=== PATIENT | female | born 1940 | race Caucasian/White ===

== ENCOUNTER 2017-01-02 17:48 | Inpatient (IN) | payer MEDICAID ==
[~2017-01-02] VITALS: Ht 157.5 cm; Wt 44.5 kg
[~2017-01-02 17:48] MED LIST: AMO500 PO; AMOXIL PO; APAP/HYDROCODON1 T13 PO; BACO TOP; BIA500 PO; COLACE100 MG PO; DOCUSATE100 MG PO; ELA10 PO; FERROUS SULFAT325 M2 PO; FLA500 PO; FOL1 PO; GABAPENTIN100 MG PO; HIBICLENS118 ML TOP; HYDROCODONE BIT1 TA5 PO; LEV250 PO; LISINOPRIL2.5 MG PO; MAG PO; NAP375 PO; NORCO1 TA2; NPHOS PO; PANTOPRAZOLE SO40 M1 PO; PRI20 PO; PROBIOTIC FORMU1 CA1 PO; PROT40I IV; REG10I IV; TYL325 PO; VENLAFAXINE37.5 M1 PO; VICODIN1 TA1 PO; [UNRECOGNIZED DRUG - CODE] PO
[2017-01-02 19:37] LABS: BASOPHIL % 0.8 % (0-2); PLATELET COUNT 373 x10^3mcL (130-400)
[2017-01-02 19:48] LABS: RED CELL DISTRIBUTION WIDTH 23.8 % (11.5-14.5)
[2017-01-02 19:49] LABS: ALBUMIN 4.3 g/dL (3.4-5.0); ALKALINE PHOSPHATASE 105 U/L (46-116); ALT/SGPT 16 U/L (14-59); AST/SGOT 20 U/L (15-37); BILIRUBIN TOTAL 0.2 mg/dL (0.20-1.00); CALCIUM 11.9 mg/dL (8.5-10.1); CARBON DIOXIDE 30.1 mmol/L (21-32); CHLORIDE SERUM 103 mmol/L (98-107); GLUCOSE SERUM 148 mg/dL (74-106); LIPASE 1058 IU/L (73-393); SODIUM SERUM 144 mmol/L (136-145)
[2017-01-02 19:50] LABS: UA SPECIFIC GRAVITY 1.015 (1.005-1.035); microscopic required? YES; urine erythrocyte TRACE (NEGATIVE)
[2017-01-02 19:54] LABS: POTASSIUM SERUM 2.8 mmol/L (3.5-5.1); TOTAL PROTEIN, SERUM 8.8 g/dL (6.4-8.2)
[2017-01-02] MEDS ORDERED: CARAFATE1 GM PO (20:07)
[2017-01-02 21:28] VITALS: BP 208/110
[2017-01-02 21:50] LABS: PHOSPHOROUS 1.5 mg/dL (2.5-4.9)
[2017-01-02 21:56] LABS: T3 TOTAL 1.38 ng/mL
[2017-01-02 22:00] LABS: FREE T4 1.39 ng/dL (0.76-1.46); FREE THYROXINE INDEX 3.5 ug/dL (1.4-4.5); T4(THYROXINE) 11.7 ug/dL (4.7-13.3)
[2017-01-02 22:40] LABS: CHOLESTEROL/HDL RATIO 2.3
[2017-01-02 23:22] VITALS: BP 190/105
[2017-01-03 00:32] VITALS: BP 172/86
[2017-01-03 05:48] VITALS: BP 155/93
[2017-01-03 06:13] LABS: BASOPHIL % 0.2 % (0-2); PLATELET COUNT 315 x10^3mcL (130-400); RED BLOOD CELLS 3.76 M/mm3 (4.10-5.10)
[2017-01-03 06:54] LABS: CALCIUM 10.3 mg/dL (8.5-10.1); CARBON DIOXIDE 21.3 mmol/L (21-32); CHLORIDE SERUM 107 mmol/L (98-107); CREATININE SERUM 0.8 mg/dL (0.6-1.0); GLUCOSE SERUM 137 mg/dL (74-106); MAGNESIUM 2.6 mg/dL (1.8-2.4); PHOSPHOROUS 2.1 mg/dL (2.5-4.9); POTASSIUM SERUM 3.8 mmol/L (3.5-5.1); SODIUM SERUM 141 mmol/L (136-145)
[2017-01-03 07:55] LABS: IRON 42 ug/dL (50-170); TOTAL IRON BINDING CAPACITY 442 ug/dL (250-450)
[2017-01-03 08:41] VITALS: BP 127/73
[2017-01-03 14:15] VITALS: BP 145/69
[2017-01-03 17:06] VITALS: BP 142/72
[2017-01-03 21:38] VITALS: BP 156/71
[2017-01-04] VITALS (7 sets, daily range): BP systolic 139–170; BP diastolic 66–88
[2017-01-04 06:36] LABS: BASOPHIL % 0.7 % (0-2); PLATELET COUNT 264 x10^3mcL (130-400)
[2017-01-04 06:53] LABS: RED CELL DISTRIBUTION WIDTH 23.2 % (11.5-14.5)
[2017-01-04 07:10] LABS: CARBON DIOXIDE 18.8 mmol/L (21-32); CHLORIDE SERUM 109 mmol/L (98-107); CREATININE SERUM 0.7 mg/dL (0.6-1.0); GLUCOSE SERUM 93 mg/dL (74-106); POTASSIUM SERUM 3.4 mmol/L (3.5-5.1); SODIUM SERUM 139 mmol/L (136-145)
[2017-01-04 14:31] LABS: TRANSFERRIN 359 mg/dL (200-370)
[2017-01-05 06:09] LABS: BASOPHIL % 1.3 % (0-2); PLATELET COUNT 246 x10^3mcL (130-400)
[2017-01-05 06:22] VITALS: BP 145/72
[2017-01-05 06:44] LABS: CALCIUM 9.2 mg/dL (8.5-10.1); CARBON DIOXIDE 21.2 mmol/L (21-32); CHLORIDE SERUM 109 mmol/L (98-107); CREATININE SERUM 0.7 mg/dL (0.6-1.0); GLUCOSE SERUM 87 mg/dL (74-106); MAGNESIUM 1.9 mg/dL (1.8-2.4); PHOSPHOROUS 1.6 mg/dL (2.5-4.9); POTASSIUM SERUM 4.2 mmol/L (3.5-5.1); SODIUM SERUM 138 mmol/L (136-145)
[2017-01-05 07:13] LABS: RED CELL DISTRIBUTION WIDTH 22.9 % (11.5-14.5)
[2017-01-05 17:52] VITALS: BP 170/97
[2017-01-05 22:40] VITALS: BP 184/90
[2017-01-05 23:20] VITALS: BP 176/86
[2017-01-06 00:16] VITALS: BP 162/82
[2017-01-06 01:41] VITALS: BP 166/85
[2017-01-06 06:09] LABS: BASOPHIL % 0.3 % (0-2); PLATELET COUNT 333 x10^3mcL (130-400)
[2017-01-06 06:33] VITALS: BP 151/87
[2017-01-06 06:41] LABS: CARBON DIOXIDE 22.6 mmol/L (21-32); CHLORIDE SERUM 106 mmol/L (98-107); CREATININE SERUM 0.8 mg/dL (0.6-1.0); GLUCOSE SERUM 136 mg/dL (74-106); MAGNESIUM 1.9 mg/dL (1.8-2.4); PHOSPHOROUS 1.9 mg/dL (2.5-4.9); POTASSIUM SERUM 3.8 mmol/L (3.5-5.1); SODIUM SERUM 139 mmol/L (136-145)
[2017-01-06 06:48] LABS: RED CELL DISTRIBUTION WIDTH 22.9 % (11.5-14.5); rbc morphology (normal/abnorm) ABNORMAL (NORMAL)
[2017-01-06 12:21] LABS: LIPASE 182 IU/L (73-393)
[2017-01-06 12:28] LABS: AMYLASE 200 U/L (25-115)
[2017-01-06 13:15] VITALS: BP 148/72
[2017-01-06 16:15] VITALS: BP 150/75
[2017-01-06 22:03] VITALS: BP 160/80
[2017-01-07 06:08] VITALS: BP 146/80
[2017-01-07 06:24] LABS: PLATELET COUNT 307 x10^3mcL (130-400)
[2017-01-07 06:40] LABS: CALCIUM 10.3 mg/dL (8.5-10.1); CHLORIDE SERUM 104 mmol/L (98-107); CREATININE SERUM 0.7 mg/dL (0.6-1.0); GLUCOSE SERUM 129 mg/dL (74-106); MAGNESIUM 1.8 mg/dL (1.8-2.4); PHOSPHOROUS 2.2 mg/dL (2.5-4.9); POTASSIUM SERUM 3.9 mmol/L (3.5-5.1); RED CELL DISTRIBUTION WIDTH 22.6 % (11.5-14.5); SODIUM SERUM 140 mmol/L (136-145)
[2017-01-07 07:49] LABS: BAND NEUTROPHIL 1 % (0-10); MONOCYTE 10 % (0-7); SEGMENTED NEUTROPHILS 79 % (37-75); ovalocyte/elliptocyte 1+; rbc morphology (normal/abnorm) ABNORMAL (NORMAL)
[2017-01-07 10:00] VITALS: BP 136/71
[2017-01-07 14:00] VITALS: BP 144/81
[2017-01-07 17:23] VITALS: BP 131/76
[2017-01-07 21:55] VITALS: BP 159/78
[2017-01-08 05:57] VITALS: BP 108/70; BP 139/76
[2017-01-08 06:26] LABS: CALCIUM 11.1 mg/dL (8.5-10.1); CARBON DIOXIDE 24.7 mmol/L (21-32); CHLORIDE SERUM 104 mmol/L (98-107); CREATININE SERUM 0.7 mg/dL (0.6-1.0); GLUCOSE SERUM 151 mg/dL (74-106); MAGNESIUM 1.9 mg/dL (1.8-2.4); PHOSPHOROUS 2.4 mg/dL (2.5-4.9); POTASSIUM SERUM 3.8 mmol/L (3.5-5.1); SODIUM SERUM 138 mmol/L (136-145)
[2017-01-08 06:28] LABS: BASOPHIL % 0.3 % (0-2); PLATELET COUNT 320 x10^3mcL (130-400)
[2017-01-08 06:56] LABS: RED CELL DISTRIBUTION WIDTH 21.5 % (11.5-14.5)
[2017-01-08 06:57] LABS: ovalocyte/elliptocyte 1+; rbc morphology (normal/abnorm) ABNORMAL (NORMAL)
[2017-01-08 09:22] VITALS: BP 147/72
[2017-01-08 14:44] VITALS: BP 136/74
[2017-01-08 17:34] VITALS: BP 143/73
[2017-01-08 22:38] VITALS: BP 142/88
[2017-01-09 05:53] VITALS: BP 140/75
[2017-01-09 06:28] LABS: BASOPHIL % 0.9 % (0-2); PLATELET COUNT 344 x10^3mcL (130-400)
[2017-01-09 06:43] LABS: CALCIUM 11.5 mg/dL (8.5-10.1); CARBON DIOXIDE 23.1 mmol/L (21-32); CHLORIDE SERUM 106 mmol/L (98-107); CREATININE SERUM 0.7 mg/dL (0.6-1.0); GLUCOSE SERUM 119 mg/dL (74-106); PHOSPHOROUS 2.5 mg/dL (2.5-4.9); SODIUM SERUM 140 mmol/L (136-145)
[2017-01-09 06:48] LABS: ALBUMIN 2.5 g/dL (3.4-5.0)
[2017-01-09 07:31] LABS: RED CELL DISTRIBUTION WIDTH 22.2 % (11.5-14.5); rbc morphology (normal/abnorm) ABNORMAL (NORMAL)
[2017-01-09 07:32] LABS: ovalocyte/elliptocyte 1+
[2017-01-09 09:43] VITALS: BP 155/84
[2017-01-09 13:40] VITALS: BP 141/80
[2017-01-09 17:41] VITALS: BP 148/81
[2017-01-09 20:49] VITALS: BP 157/85
[2017-01-10 06:18] VITALS: BP 180/88
[2017-01-10 06:52] LABS: BASOPHIL % 0.7 % (0-2); PLATELET COUNT 397 x10^3mcL (130-400)
[2017-01-10 06:56] LABS: CALCIUM 11.7 mg/dL (8.5-10.1); CARBON DIOXIDE 26.5 mmol/L (21-32); CHLORIDE SERUM 107 mmol/L (98-107); CREATININE SERUM 0.8 mg/dL (0.6-1.0); GLUCOSE SERUM 124 mg/dL (74-106); POTASSIUM SERUM 3.6 mmol/L (3.5-5.1); SODIUM SERUM 142 mmol/L (136-145)
[2017-01-10 07:04] LABS: RED CELL DISTRIBUTION WIDTH 21.5 % (11.5-14.5)
[2017-01-10 07:05] LABS: rbc morphology (normal/abnorm) ABNORMAL (NORMAL)
[2017-01-10 08:55] VITALS: BP 168/75
[2017-01-10 13:46] VITALS: BP 196/102
[2017-01-10 14:10] VITALS: BP 169/88
[2017-01-10 17:59] VITALS: BP 175/84
[2017-01-10 22:59] VITALS: BP 156/83
[2017-01-11] VITALS (7 sets, daily range): BP systolic 145–168; BP diastolic 72–89
[2017-01-11 07:26] LABS: BASOPHIL % 1.1 % (0-2)
[2017-01-11 07:32] LABS: PLATELET COUNT 421 x10^3mcL (130-400); RED CELL DISTRIBUTION WIDTH 20.9 % (11.5-14.5); rbc morphology (normal/abnorm) ABNORMAL (NORMAL)
[2017-01-11 07:33] LABS: CALCIUM 11.6 mg/dL (8.5-10.1); CARBON DIOXIDE 27.8 mmol/L (21-32); CHLORIDE SERUM 110 mmol/L (98-107); CREATININE SERUM 0.7 mg/dL (0.6-1.0); GLUCOSE SERUM 111 mg/dL (74-106); MAGNESIUM 2.1 mg/dL (1.8-2.4); PHOSPHOROUS 2.8 mg/dL (2.5-4.9); POTASSIUM SERUM 3.6 mmol/L (3.5-5.1); SODIUM SERUM 145 mmol/L (136-145)
[2017-01-12] VITALS (8 sets, daily range): BP systolic 154–197; BP diastolic 75–90
[2017-01-12 06:22] LABS: BASOPHIL % 0.3 % (0-2)
[2017-01-12 06:37] LABS: CALCIUM 11.6 mg/dL (8.5-10.1); CARBON DIOXIDE 26.2 mmol/L (21-32); CHLORIDE SERUM 107 mmol/L (98-107); CREATININE SERUM 0.9 mg/dL (0.6-1.0); GLUCOSE SERUM 200 mg/dL (74-106); MAGNESIUM 1.7 mg/dL (1.8-2.4); PHOSPHOROUS 2.3 mg/dL (2.5-4.9); POTASSIUM SERUM 3.3 mmol/L (3.5-5.1); SODIUM SERUM 144 mmol/L (136-145)
[2017-01-12 07:20] LABS: PLATELET COUNT 483 x10^3mcL (130-400)
[2017-01-12 17:15] LABS: BASOPHIL % 0.7 % (0-2)
[2017-01-12 17:40] LABS: PLATELET COUNT 424 x10^3mcL (130-400); RED CELL DISTRIBUTION WIDTH 20.4 % (11.5-14.5)
[2017-01-12 17:43] LABS: rbc morphology (normal/abnorm) ABNORMAL (NORMAL)
[2017-01-13 05:35] VITALS: BP 142/65
[2017-01-13 06:18] LABS: PLATELET COUNT 386 x10^3mcL (130-400)
[2017-01-13 06:38] LABS: CALCIUM 10.3 mg/dL (8.5-10.1); CARBON DIOXIDE 25.3 mmol/L (21-32); CHLORIDE SERUM 109 mmol/L (98-107); CREATININE SERUM 0.8 mg/dL (0.6-1.0); GLUCOSE SERUM 132 mg/dL (74-106); MAGNESIUM 2.2 mg/dL (1.8-2.4); POTASSIUM SERUM 3.8 mmol/L (3.5-5.1); SODIUM SERUM 143 mmol/L (136-145)
[2017-01-13 07:20] LABS: RED CELL DISTRIBUTION WIDTH 20.1 % (11.5-14.5)
[2017-01-13 09:33] VITALS: BP 148/78
[2017-01-13 14:00] VITALS: BP 140/72
[2017-01-13 18:14] VITALS: BP 126/61
[2017-01-13 22:26] VITALS: BP 149/76
[2017-01-14 06:22] LABS: BASOPHIL % 0.9 % (0-2)
[2017-01-14 06:25] VITALS: BP 155/73
[2017-01-14 06:37] LABS: CARBON DIOXIDE 26.8 mmol/L (21-32); CHLORIDE SERUM 107 mmol/L (98-107); CREATININE SERUM 0.7 mg/dL (0.6-1.0); GLUCOSE SERUM 107 mg/dL (74-106); POTASSIUM SERUM 3.6 mmol/L (3.5-5.1); SODIUM SERUM 140 mmol/L (136-145)
[2017-01-14 06:39] LABS: PLATELET COUNT 421 x10^3mcL (130-400); RED CELL DISTRIBUTION WIDTH 20.5 % (11.5-14.5)
[2017-01-14 08:30] LABS: rbc morphology (normal/abnorm) ABNORMAL (NORMAL)
[2017-01-14 09:12] VITALS: BP 149/81
[2017-01-14 12:05] VITALS: BP 142/75
[2017-01-14 17:54] VITALS: BP 147/76
[2017-01-14 21:50] VITALS: BP 139/74
[2017-01-15 05:58] VITALS: BP 131/74
[2017-01-15 06:35] LABS: CALCIUM 10.2 mg/dL (8.5-10.1); CARBON DIOXIDE 25.1 mmol/L (21-32); CHLORIDE SERUM 107 mmol/L (98-107); CREATININE SERUM 0.7 mg/dL (0.6-1.0); GLUCOSE SERUM 113 mg/dL (74-106); MAGNESIUM 1.9 mg/dL (1.8-2.4); PHOSPHOROUS 2.1 mg/dL (2.5-4.9); POTASSIUM SERUM 3.1 mmol/L (3.5-5.1); SODIUM SERUM 140 mmol/L (136-145)
[2017-01-15 10:05] VITALS: BP 163/76
[2017-01-15 14:07] VITALS: BP 154/76
[2017-01-15 17:22] VITALS: BP 161/84
[2017-01-15 19:30] VITALS: BP 145/72
[2017-01-15 22:17] VITALS: BP 152/70
[2017-01-16 05:59] VITALS: BP 159/66
[2017-01-16 06:39] LABS: BASOPHIL % 0.4 % (0-2)
[2017-01-16 06:47] LABS: CALCIUM 10.8 mg/dL (8.5-10.1); CARBON DIOXIDE 22.3 mmol/L (21-32); CHLORIDE SERUM 104 mmol/L (98-107); CREATININE SERUM 0.7 mg/dL (0.6-1.0); GLUCOSE SERUM 97 mg/dL (74-106); MAGNESIUM 1.8 mg/dL (1.8-2.4); SODIUM SERUM 139 mmol/L (136-145)
[2017-01-16 06:56] LABS: PLATELET COUNT 480 x10^3mcL (130-400); RED CELL DISTRIBUTION WIDTH 19.4 % (11.5-14.5)
[2017-01-16 09:00] VITALS: BP 138/73
[2017-01-16 10:20] VITALS: BP 138/73
[2017-01-16 18:07] VITALS: BP 140/83
[2017-01-16 21:19] VITALS: BP 136/61
[2017-01-17 05:05] VITALS: BP 143/62
[2017-01-17 06:15] LABS: BASOPHIL % 0.7 % (0-2)
[2017-01-17 06:36] LABS: CALCIUM 11.7 mg/dL (8.5-10.1); CARBON DIOXIDE 25.4 mmol/L (21-32); CHLORIDE SERUM 102 mmol/L (98-107); CREATININE SERUM 0.9 mg/dL (0.6-1.0); GLUCOSE SERUM 112 mg/dL (74-106); MAGNESIUM 1.9 mg/dL (1.8-2.4); POTASSIUM SERUM 4.7 mmol/L (3.5-5.1); SODIUM SERUM 134 mmol/L (136-145)
[2017-01-17 07:20] LABS: PLATELET COUNT 460 x10^3mcL (130-400); RED CELL DISTRIBUTION WIDTH 20.5 % (11.5-14.5)
[2017-01-17 08:00] VITALS: BP 133/66
[2017-01-17 09:40] VITALS: BP 137/66
[2017-01-17 18:31] VITALS: BP 133/66
[2017-01-17 21:40] VITALS: BP 122/69
[2017-01-18 05:30] VITALS: BP 113/71
[2017-01-18 09:15] VITALS: BP 128/60
[2017-01-18] MEDS ORDERED: ZESTRIL20 MG PO (10:49)
[2017-01-18] MEDS ORDERED: METOCLOPRAMIDE10 M2 PO (10:49)
[2017-01-18] MEDS ORDERED: ZOFRAN8 MG PO (10:51)
[2017-01-18 14:47] VITALS: BP 128/60
[2017-01-18] MEDS ORDERED: NORCO 10-325 T1 EACH PO (14:48)
[2017-01-18 18:10] VITALS: BP 114/60
[2017-01-18 22:04] VITALS: BP 96/52
[2017-01-19 06:07] VITALS: BP 142/80
[2017-01-19 09:49] VITALS: BP 127/75
[2017-01-19 10:49] LABS: CALCIUM 11.7 mg/dL (8.5-10.1); CARBON DIOXIDE 26.6 mmol/L (21-32); CHLORIDE SERUM 100 mmol/L (98-107); CREATININE SERUM 1.3 mg/dL (0.6-1.0); GLUCOSE SERUM 116 mg/dL (74-106); POTASSIUM SERUM 4.2 mmol/L (3.5-5.1); SODIUM SERUM 136 mmol/L (136-145)
[2017-01-19] MEDS ORDERED: VENLAFAXINE H37.5 M1 JT (13:10)
[2017-01-19 13:12] VITALS: BP 128/60
== END 2017-01-19 14:05 | disposition home health service (06) | DRG 220 ==
LOC: ED 17:48 → MU 20:27 → DU 20:27 → MU 01-04 09:08 → DU 01-06 05:57 → MU 01-14 22:11
PROVIDERS: Emergency Medicine; Family Medicine; Internal Medicine; Internal Medicine Gastroenterology; Surgery; ADMIT Family Medicine
PROC: 0DB68ZX Excision of Stomach, Via Natural or Artificial Opening Endoscopic, Diagnostic (ICD-10-PCS; 2017-01-04 12:30)
PROC: 0D160ZA Bypass Stomach to Jejunum, Open Approach (ICD-10-PCS; principal; 2017-01-05 07:30)
PROC: 0DJ08ZZ Inspection of Upper Intestinal Tract, Via Natural or Artificial Opening Endoscopic (ICD-10-PCS; 2017-01-17)
DX: K26.7 Chronic duodenal ulcer without hemorrhage or perforation (principal); N17.0 Acute kidney failure with tubular necrosis; I50.43 Acute on chronic combined systolic (congestive) and diastolic (congestive) heart failure; K85.90 Acute pancreatitis without necrosis or infection, unspecified; K31.1 Adult hypertrophic pyloric stenosis; I27.2 Other secondary pulmonary hypertension; E83.42 Hypomagnesemia; E83.52 Hypercalcemia; K25.9 Gastric ulcer, unspecified as acute or chronic, without hemorrhage or perforation; K40.90 Unilateral inguinal hernia, without obstruction or gangrene, not specified as recurrent; E87.6 Hypokalemia; F32.9 Major depressive disorder, single episode, unspecified; I10 Essential (primary) hypertension; D50.9 Iron deficiency anemia, unspecified; Z68.1 Body mass index [BMI] 19.9 or less, adult; Z85.3 Personal history of malignant neoplasm of breast
CPT/HCPCS: 43235; 82962; 83880; 84439; 94150; 97110-GP; 97116-GP; 97530-GP; A9698; C9113; G0480; J0330; J0690; J1200; J1610; J1642; J1644; J1885; J1940; J2060; J2175; J2250; J2270; J2310; J2405; J2543; J2550; J2704; J2765; J2916; J3010; J3475; J3480; J3490; J7030; J7042; J7050; J7120; J7131; Q0092; Q9963; Q9966; Q9967

== ENCOUNTER 2017-01-19 23:35 | Inpatient (IN) | payer MEDICAID ==
[~2017-01-19] VITALS: Ht 157.5 cm; Wt 41.4 kg
[~2017-01-19 23:35] MED LIST changes: +CARAFATE1 GM PO; +METOCLOPRAMIDE10 M2 PO; +NORCO 10-325 T1 EACH PO; +VENLAFAXINE H37.5 M1 JT; +ZESTRIL20 MG PO; +ZOFRAN8 MG PO
[2017-01-20] VITALS (7 sets, daily range): BP systolic 126–184; BP diastolic 65–93
[2017-01-20 00:33] LABS: BASOPHIL % 0.7 % (0-2)
[2017-01-20 00:34] LABS: ALKALINE PHOSPHATASE 170 U/L (46-116); ALT/SGPT 28 U/L (14-59); AST/SGOT 26 U/L (15-37); BILIRUBIN TOTAL 0.2 mg/dL (0.20-1.00); CARBON DIOXIDE 29.1 mmol/L (21-32); CHLORIDE SERUM 92 mmol/L (98-107); CREATININE SERUM 1.9 mg/dL (0.6-1.0); GLUCOSE SERUM 205 mg/dL (74-106); SODIUM SERUM 134 mmol/L (136-145)
[2017-01-20 00:35] LABS: TOTAL PROTEIN, SERUM 9.2 g/dL (6.4-8.2)
[2017-01-20 00:37] LABS: RED CELL DISTRIBUTION WIDTH 21.2 % (11.5-14.5)
[2017-01-20 00:39] LABS: PLATELET COUNT 938 x10^3mcL (130-400)
[2017-01-20 04:32] LABS: MAGNESIUM 2.5 mg/dL (1.8-2.4); PHOSPHOROUS 3.9 mg/dL (2.5-4.9)
[2017-01-20 04:33] LABS: CHOLESTEROL/HDL RATIO 2.1
[2017-01-20 04:41] LABS: T3 TOTAL 1.28 ng/mL
[2017-01-20 04:42] LABS: FREE T4 1.62 ng/dL (0.76-1.46)
[2017-01-20 05:00] LABS: FREE THYROXINE INDEX 5.3 ug/dL (1.4-4.5); T4(THYROXINE) 15.2 ug/dL (4.7-13.3)
[2017-01-20 18:06] LABS: UA SPECIFIC GRAVITY >=1.030 (1.005-1.035); microscopic required? YES; urine erythrocyte 1+ (NEGATIVE)
[2017-01-20 18:16] LABS: AMPHETAMINE QUAL UR NONE DETECTED (NEG <=1000)
[2017-01-21] VITALS (7 sets, daily range): BP systolic 152–183; BP diastolic 65–88
[2017-01-21 06:04] LABS: BASOPHIL % 0.5 % (0-2)
[2017-01-21 07:06] LABS: PLATELET COUNT 609 x10^3mcL (130-400); RED CELL DISTRIBUTION WIDTH 21.5 % (11.5-14.5)
[2017-01-21 07:50] LABS: SODIUM SERUM 143 mmol/L (136-145)
[2017-01-21 07:52] LABS: CARBON DIOXIDE 20.8 mmol/L (21-32); CHLORIDE SERUM 113 mmol/L (98-107); CREATININE SERUM 1.3 mg/dL (0.6-1.0); GLUCOSE SERUM 139 mg/dL (74-106); POTASSIUM SERUM 5.9 mmol/L (3.5-5.1)
[2017-01-21 07:53] LABS: CALCIUM 9.4 mg/dL (8.5-10.1); MAGNESIUM 1.8 mg/dL (1.8-2.4); PHOSPHOROUS 1.6 mg/dL (2.5-4.9)
[2017-01-21 08:35] LABS: rbc morphology (normal/abnorm) ABNORMAL (NORMAL); tear drop cell (dacryocyte) 1+
[2017-01-21 08:37] LABS: schistocyte (helmet cell) 1+
[2017-01-21 15:18] LABS: CALCIUM 10.6 mg/dL (8.5-10.1); CARBON DIOXIDE 20.4 mmol/L (21-32); CHLORIDE SERUM 111 mmol/L (98-107); CREATININE SERUM 1.3 mg/dL (0.6-1.0); GLUCOSE SERUM 130 mg/dL (74-106); SODIUM SERUM 146 mmol/L (136-145)
[2017-01-22 05:39] VITALS: BP 146/78
[2017-01-22 11:15] VITALS: BP 170/100
[2017-01-22 11:47] LABS: BASOPHIL % 1.1 % (0-2)
[2017-01-22 11:48] LABS: RED CELL DISTRIBUTION WIDTH 22.1 % (11.5-14.5)
[2017-01-22 11:49] LABS: PLATELET COUNT 645 x10^3mcL (130-400); rbc morphology (normal/abnorm) ABNORMAL (NORMAL)
[2017-01-22 12:47] LABS: ALKALINE PHOSPHATASE 142 U/L (46-116); ALT/SGPT 70 U/L (14-59); AST/SGOT 50 U/L (15-37); BILIRUBIN TOTAL 0.39 mg/dL (0.20-1.00); CALCIUM 10.3 mg/dL (8.5-10.1); CARBON DIOXIDE 21.2 mmol/L (21-32); CHLORIDE SERUM 103 mmol/L (98-107); CREATININE SERUM 0.8 mg/dL (0.6-1.0); GLUCOSE SERUM 109 mg/dL (74-106); MAGNESIUM 1.3 mg/dL (1.8-2.4); PHOSPHOROUS 3.2 mg/dL (2.5-4.9); POTASSIUM SERUM 3.4 mmol/L (3.5-5.1); SODIUM SERUM 138 mmol/L (136-145); TOTAL PROTEIN, SERUM 7.5 g/dL (6.4-8.2)
[2017-01-22 12:48] LABS: ALBUMIN 3.1 g/dL (3.4-5.0)
[2017-01-22] MEDS ORDERED: PROBIOTIC FORM1 EACH JT (14:20)
[2017-01-22] MEDS ORDERED: ELA10 JT (14:21)
[2017-01-22] MEDS ORDERED: TYL325 JT (14:21)
[2017-01-22] MEDS ORDERED: PHE25I IV (14:22)
[2017-01-22] MEDS ORDERED: MOR2I IV (14:22)
[2017-01-22] MEDS ORDERED: APR20I IV (14:22)
[2017-01-22] MEDS ORDERED: ZOFI IV (14:23)
[2017-01-22] MEDS ORDERED: PROT40I IV (14:23)
[2017-01-22] MEDS ORDERED: REG10I IV (14:23)
[2017-01-22] MEDS ORDERED: L20I IV (14:23)
[2017-01-22 15:02] VITALS: BP 170/100
== END 2017-01-22 16:25 | disposition short-term general hospital (02) | DRG 247 ==
LOC: ED 23:35 → DU 01-20 03:27 → MU 01-21 16:59
PROVIDERS: Emergency Medicine; ADMIT Family Medicine
DX: K56.60 Unspecified intestinal obstruction (principal); N17.0 Acute kidney failure with tubular necrosis; K85.90 Acute pancreatitis without necrosis or infection, unspecified; D69.59 Other secondary thrombocytopenia; E87.1 Hypo-osmolality and hyponatremia; K26.9 Duodenal ulcer, unspecified as acute or chronic, without hemorrhage or perforation; I27.2 Other secondary pulmonary hypertension; Z68.1 Body mass index [BMI] 19.9 or less, adult; E21.3 Hyperparathyroidism, unspecified; K76.89 Other specified diseases of liver; K40.90 Unilateral inguinal hernia, without obstruction or gangrene, not specified as recurrent; F32.9 Major depressive disorder, single episode, unspecified; E83.52 Hypercalcemia; I10 Essential (primary) hypertension; D64.9 Anemia, unspecified; Z66 Do not resuscitate; Z87.11 Personal history of peptic ulcer disease; Z85.3 Personal history of malignant neoplasm of breast; Z90.11 Acquired absence of right breast and nipple; Z93.4 Other artificial openings of gastrointestinal tract status
CPT/HCPCS: 82962; 83880; 84439; C9113; J0360; J1940; J2270; J2405; J2550; J2765; J3010; J3480; J3490; J7030; J7040; J7131; Q0092

== ENCOUNTER 2017-02-06 23:59 | Emergency (ER) | payer MEDICAID ==
[~2017-02-06 23:59] MED LIST changes: +APR20I IV; +ELA10 JT; +L20I IV; +MOR2I IV; +PHE25I IV; +PROBIOTIC FORM1 EACH JT; +TYL325 JT; +ZOFI IV
[2017-02-07 00:50] VITALS: BP 149/86
== END 2017-02-07 00:55 | disposition home or self-care (01) ==
LOC: ED 23:59
DX: Z46.59 Encounter for fitting and adjustment of other gastrointestinal appliance and device (principal); K59.00 Constipation, unspecified; I10 Essential (primary) hypertension; Z85.3 Personal history of malignant neoplasm of breast

== ENCOUNTER 2017-04-08 12:01 | Inpatient (IN) | payer MEDICAID ==
[~2017-04-08] VITALS: Ht 149.9 cm; Wt 43.6 kg
[2017-04-08 13:32] LABS: BASOPHIL % 1.5 % (0-2); PLATELET COUNT 356 x10^3mcL (130-400)
[2017-04-08 13:37] LABS: RED CELL DISTRIBUTION WIDTH 19.8 % (11.5-14.5)
[2017-04-08 13:50] LABS: CALCIUM 10.5 mg/dL (8.5-10.1); CHLORIDE SERUM 105 mmol/L (98-107); CREATININE SERUM 0.7 mg/dL (0.6-1.0); GLUCOSE SERUM 102 mg/dL (74-106); POTASSIUM SERUM 3.8 mmol/L (3.5-5.1); SODIUM SERUM 137 mmol/L (136-145)
[2017-04-08 13:51] LABS: UA SPECIFIC GRAVITY <=1.005 (1.005-1.035); microscopic required? YES; urine erythrocyte 1+ (NEGATIVE)
[2017-04-08 14:01] LABS: ALBUMIN 3.4 g/dL (3.4-5.0); ALKALINE PHOSPHATASE 411 U/L (46-116); ALT/SGPT 95 U/L (14-59); AMYLASE 54 U/L (25-115); AST/SGOT 52 U/L (15-37); BILIRUBIN TOTAL 0.3 mg/dL (0.20-1.00); LIPASE 107 IU/L (73-393); TOTAL PROTEIN, SERUM 7.6 g/dL (6.4-8.2)
[2017-04-08 15:40] LABS: T3 TOTAL 1.23 ng/mL
[2017-04-08 15:50] LABS: FREE T4 0.98 ng/dL (0.76-1.46); FREE THYROXINE INDEX 3.3 ug/dL (1.4-4.5); T4(THYROXINE) 9.1 ug/dL (4.7-13.3)
[2017-04-08 15:53] LABS: MAGNESIUM 1.5 mg/dL (1.8-2.4); PHOSPHOROUS 1.7 mg/dL (2.5-4.9)
[2017-04-08 17:04] VITALS: BP 157/87
[2017-04-08 21:04] VITALS: BP 157/82
[2017-04-09 06:27] VITALS: BP 150/68
[2017-04-09 07:23] LABS: CALCIUM 10.1 mg/dL (8.5-10.1); CARBON DIOXIDE 22.6 mmol/L (21-32); CHLORIDE SERUM 109 mmol/L (98-107); CREATININE SERUM 0.7 mg/dL (0.6-1.0); GLUCOSE SERUM 80 mg/dL (74-106); MAGNESIUM 2.6 mg/dL (1.8-2.4); PHOSPHOROUS 2.5 mg/dL (2.5-4.9); POTASSIUM SERUM 4.2 mmol/L (3.5-5.1); SODIUM SERUM 139 mmol/L (136-145)
[2017-04-09 07:59] LABS: BASOPHIL % 1.8 % (0-2); PLATELET COUNT 330 x10^3mcL (130-400); RED CELL DISTRIBUTION WIDTH 20.2 % (11.5-14.5)
[2017-04-09 09:58] VITALS: BP 145/76
[2017-04-09 13:28] VITALS: BP 154/68
[2017-04-09 17:46] VITALS: BP 162/78
[2017-04-09 20:55] VITALS: BP 127/68
[2017-04-10 05:13] VITALS: BP 117/75
[2017-04-10 09:48] VITALS: BP 146/77
[2017-04-10 09:54] VITALS: BP 163/77
[2017-04-10 13:58] VITALS: BP 149/74
[2017-04-10 17:25] VITALS: BP 166/73
[2017-04-10 21:25] VITALS: BP 167/69
[2017-04-11 05:34] VITALS: BP 143/72
[2017-04-11 06:55] LABS: BASOPHIL % 1.3 % (0-2); PLATELET COUNT 339 x10^3mcL (130-400)
[2017-04-11 06:58] LABS: CALCIUM 10.4 mg/dL (8.5-10.1); CARBON DIOXIDE 18.1 mmol/L (21-32); CHLORIDE SERUM 106 mmol/L (98-107); CREATININE SERUM 0.5 mg/dL (0.6-1.0); GLUCOSE SERUM 61 mg/dL (74-106); POTASSIUM SERUM 4.1 mmol/L (3.5-5.1); SODIUM SERUM 137 mmol/L (136-145)
[2017-04-11 07:27] LABS: RED CELL DISTRIBUTION WIDTH 18.7 % (11.5-14.5)
[2017-04-11 09:07] LABS: BILIRUBIN DIRECT 0.11 mg/dL (0.0-0.2); BILIRUBIN TOTAL 0.34 mg/dL (0.20-1.00); TOTAL PROTEIN, SERUM 7.1 g/dL (6.4-8.2)
[2017-04-11 10:02] VITALS: BP 132/73
[2017-04-11 16:28] VITALS: BP 157/68
[2017-04-11 19:40] VITALS: BP 154/73
[2017-04-11 21:28] VITALS: BP 162/74
[2017-04-12 05:18] VITALS: BP 161/68
[2017-04-12 06:38] LABS: PLATELET COUNT 378 x10^3mcL (130-400); RED CELL DISTRIBUTION WIDTH 18.4 % (11.5-14.5)
[2017-04-12 06:51] LABS: CALCIUM 10.7 mg/dL (8.5-10.1); CHLORIDE SERUM 107 mmol/L (98-107); CREATININE SERUM 0.6 mg/dL (0.6-1.0); GLUCOSE SERUM 92 mg/dL (74-106); POTASSIUM SERUM 3.4 mmol/L (3.5-5.1); SODIUM SERUM 139 mmol/L (136-145)
[2017-04-12 10:01] VITALS: BP 163/76
[2017-04-12 13:54] VITALS: BP 129/78
[2017-04-12 16:43] VITALS: BP 129/78
== END 2017-04-12 18:42 | disposition home or self-care (01) | DRG 222 ==
LOC: ED 12:01 → DU 14:36 → MU 14:36 → DU 16:26 → MU 04-10 16:59
PROVIDERS: Family Medicine; Internal Medicine Gastroenterology; Specialist; ADMIT Family Medicine
PROC: 0D778ZZ Dilation of Stomach, Pylorus, Via Natural or Artificial Opening Endoscopic (ICD-10-PCS; principal; 2017-04-12 12:30)
DX: K31.1 Adult hypertrophic pyloric stenosis (principal); N17.0 Acute kidney failure with tubular necrosis; I50.43 Acute on chronic combined systolic (congestive) and diastolic (congestive) heart failure; K83.1 Obstruction of bile duct; E44.0 Moderate protein-calorie malnutrition; I11.0 Hypertensive heart disease with heart failure; K76.89 Other specified diseases of liver; K29.60 Other gastritis without bleeding; K21.9 Gastro-esophageal reflux disease without esophagitis; I16.0 Hypertensive urgency; D64.9 Anemia, unspecified; F32.9 Major depressive disorder, single episode, unspecified; Z68.1 Body mass index [BMI] 19.9 or less, adult; Z87.11 Personal history of peptic ulcer disease; Z93.4 Other artificial openings of gastrointestinal tract status
CPT/HCPCS: 43235; 74181; 82962; 83880; 84439; C1769; J0295; J1610; J1885; J2270; J2405; J2704; J3010; J3475; J3490; J7030; J7120; Q0092; Q9966; Q9967

== ENCOUNTER 2018-02-23 16:22 | Inpatient (IN) | payer MEDICAID ==
[~2018-02-23] VITALS: Ht 121.9 cm; Wt 50.8 kg
[2018-02-23 16:35] VITALS: Ht 121.9 cm; Wt 50.8 kg
[2018-02-23 17:27] LABS: microscopic required? YES; urine erythrocyte 3+ (NEGATIVE)
[2018-02-23 17:38] LABS: AMPHETAMINE QUAL UR NONE DETECTED (See below)
[2018-02-23 18:05] LABS: BASOPHIL % 0.4 % (0-2); PLATELET COUNT 342 x10^3mcL (130-400)
[2018-02-23 18:06] LABS: RED CELL DISTRIBUTION WIDTH 18.2 % (11.5-14.5)
[2018-02-23 18:20] LABS: CK-MB 1.2 ng/mL (0-3.6)
[2018-02-23 18:31] LABS: CALCIUM 9.9 mg/dL (8.5-10.1); CARBON DIOXIDE 19.2 mmol/L (21-32); CHLORIDE SERUM 107 mmol/L (98-107); GLUCOSE SERUM 106 mg/dL (74-106); POTASSIUM SERUM 3.8 mmol/L (3.5-5.1); SODIUM SERUM 140 mmol/L (136-145)
[2018-02-23 18:42] LABS: ALKALINE PHOSPHATASE 75 U/L (46-116); ALT/SGPT 14 U/L (14-59); AMYLASE 72 U/L (25-115); AST/SGOT 21 U/L (15-37); BILIRUBIN TOTAL 0.3 mg/dL (0.20-1.00); CHOLESTEROL 145 mg/dL (<200); HDL CHOLESTEROL 42 mg/dL (40-60); LACTIC DEHYDROGENASE (LDH) 177 U/L (100-190); LIPASE 176 IU/L (73-393)
[2018-02-23 18:45] LABS: TOTAL PROTEIN, SERUM 5.7 g/dL (6.4-8.2)
[2018-02-23 19:21] LABS: rbc morphology (normal/abnorm) ABNORMAL (NORMAL)
[2018-02-23 20:06] LABS: RED BLOOD CELLS 2.38 M/mm3 (4.10-5.10)
[2018-02-23 20:09] LABS: CHOLESTEROL/HDL RATIO 3.4; MAGNESIUM 2.1 mg/dL (1.8-2.4); PHOSPHOROUS 2.2 mg/dL (2.5-4.9)
[2018-02-23 20:11] LABS: T3 TOTAL 1.23 ng/mL
[2018-02-23 20:16] LABS: FREE T4 1.09 ng/dL (0.76-1.46); FREE THYROXINE INDEX 3.1 ug/dL (1.4-4.5); T4(THYROXINE) 9.3 ug/dL (4.7-13.3)
[2018-02-23 20:17] LABS: IRON 39 ug/dL (50-170); TOTAL IRON BINDING CAPACITY 365 ug/dL (250-450)
[2018-02-23 20:35] VITALS: BP 132/62
[2018-02-24] VITALS (8 sets, daily range): BP systolic 118–156; BP diastolic 53–76
[2018-02-24 08:39] LABS: BASOPHIL % 0.8 % (0-2); PLATELET COUNT 285 x10^3mcL (130-400)
[2018-02-24 08:46] LABS: RED CELL DISTRIBUTION WIDTH 17.5 % (11.5-14.5)
[2018-02-24 09:45] LABS: CALCIUM 9.4 mg/dL (8.5-10.1); CARBON DIOXIDE 21.7 mmol/L (21-32); CHLORIDE SERUM 111 mmol/L (98-107); CREATININE SERUM 0.9 mg/dL (0.6-1.0); GLUCOSE SERUM 104 mg/dL (74-106); PHOSPHOROUS 2.6 mg/dL (2.5-4.9); POTASSIUM SERUM 3.5 mmol/L (3.5-5.1); SODIUM SERUM 142 mmol/L (136-145)
[2018-02-24] MEDS ORDERED: BENAZEPRIL HYDR20 M1 PO (11:15)
[2018-02-24] MEDS ORDERED: D-20001 TAB PO (11:17)
[2018-02-24] MEDS ORDERED: SENNA8.6 M2 PO (11:18)
[2018-02-25 04:41] VITALS: BP 148/72
[2018-02-25 07:22] LABS: CALCIUM 9.2 mg/dL (8.5-10.1); CARBON DIOXIDE 20.9 mmol/L (21-32); CHLORIDE SERUM 114 mmol/L (98-107); CREATININE SERUM 0.8 mg/dL (0.6-1.0); GLUCOSE SERUM 140 mg/dL (74-106); POTASSIUM SERUM 3.8 mmol/L (3.5-5.1); SODIUM SERUM 145 mmol/L (136-145)
[2018-02-25 07:29] LABS: BASOPHIL % 0.7 % (0-2); PLATELET COUNT 271 x10^3mcL (130-400)
[2018-02-25 07:30] LABS: RED CELL DISTRIBUTION WIDTH 17.7 % (11.5-14.5)
[2018-02-25 10:03] VITALS: BP 160/75
[2018-02-25 12:48] VITALS: BP 150/66
[2018-02-25 17:21] VITALS: BP 107/56
[2018-02-25 21:04] VITALS: BP 129/59
[2018-02-26 04:37] VITALS: BP 135/54
[2018-02-26 06:32] LABS: BASOPHIL % 1.1 % (0-2); PLATELET COUNT 321 x10^3mcL (130-400)
[2018-02-26 07:02] LABS: CALCIUM 10.1 mg/dL (8.5-10.1); CARBON DIOXIDE 19.1 mmol/L (21-32); CHLORIDE SERUM 110 mmol/L (98-107); CREATININE SERUM 0.7 mg/dL (0.6-1.0); GLUCOSE SERUM 101 mg/dL (74-106); POTASSIUM SERUM 4.1 mmol/L (3.5-5.1); SODIUM SERUM 139 mmol/L (136-145)
[2018-02-26 07:21] LABS: RED CELL DISTRIBUTION WIDTH 18.3 % (11.5-14.5)
[2018-02-26 09:24] VITALS: BP 120/68
[2018-02-26 13:39] VITALS: BP 115/63
[2018-02-26] MEDS ORDERED: PROTONIX40 MG/Pac1 PO (13:58)
[2018-02-26] MEDS ORDERED: CARAFATE1 GM PO (14:02)
[2018-02-26] MEDS ORDERED: LACTULOSE10 GM/152 PO (14:05)
== END 2018-02-26 16:26 | disposition home or self-care (01) | DRG 254 ==
LOC: ED 16:22 → DU 19:00
PROVIDERS: Emergency Medicine; Family Medicine; Internal Medicine Gastroenterology
PROC: 0DB68ZX Excision of Stomach, Via Natural or Artificial Opening Endoscopic, Diagnostic (ICD-10-PCS; principal; 2018-02-25 08:30)
PROC: 0DJD8ZZ Inspection of Lower Intestinal Tract, Via Natural or Artificial Opening Endoscopic (ICD-10-PCS; 2018-02-25 08:30)
PROC: 30233N1 Transfusion of Nonautologous Red Blood Cells into Peripheral Vein, Percutaneous Approach (ICD-10-PCS; 2018-02-25 08:30)
DX: K92.1 Melena (principal); N17.0 Acute kidney failure with tubular necrosis; E44.0 Moderate protein-calorie malnutrition; D62 Acute posthemorrhagic anemia; E83.39 Other disorders of phosphorus metabolism; K28.7 Chronic gastrojejunal ulcer without hemorrhage or perforation; N39.0 Urinary tract infection, site not specified; R31.9 Hematuria, unspecified; I10 Essential (primary) hypertension; E78.1 Pure hyperglyceridemia; F32.9 Major depressive disorder, single episode, unspecified; F41.9 Anxiety disorder, unspecified; Z68.22 Body mass index [BMI] 22.0-22.9, adult; Z85.3 Personal history of malignant neoplasm of breast
CPT/HCPCS: 43235; 45378; 82962; 83880; 84439; C9113; G0480; J0696; J1200; J1610; J2250; J2310; J2916; J3010; J3490; J7030; J7042; P9016; Q0092; Q0163

== ENCOUNTER 2018-04-22 07:10 | Inpatient (IN) | payer MEDICAID ==
[~2018-04-22] VITALS: Ht 152.4 cm; Wt 49.9 kg
[~2018-04-22 07:10] MED LIST changes: +BENAZEPRIL HYDR20 M1 PO; +D-20001 TAB PO; +LACTULOSE10 GM/152 PO; +PROTONIX40 MG/Pac1 PO; +SENNA8.6 M2 PO
[2018-04-22 07:12] VITALS: Ht 152.4 cm; Wt 49.9 kg
[2018-04-22 08:38] LABS: BASOPHIL % 0.6 % (0-2)
[2018-04-22 08:40] LABS: PLATELET COUNT 314 x10^3mcL (130-400)
[2018-04-22 09:04] LABS: microscopic required? NO
[2018-04-22 09:09] LABS: CALCIUM 9.6 mg/dL (8.5-10.1); CARBON DIOXIDE 18.3 mmol/L (21-32); CHLORIDE SERUM 111 mmol/L (98-107); CREATININE SERUM 0.9 mg/dL (0.6-1.0); GLUCOSE SERUM 110 mg/dL (74-106); SODIUM SERUM 141 mmol/L (136-145)
[2018-04-22 09:14] LABS: UA SPECIFIC GRAVITY <=1.005 (1.005-1.035); urine erythrocyte NEGATIVE (NEGATIVE)
[2018-04-22 09:14] LABS: ALKALINE PHOSPHATASE 71 U/L (46-116); ALT/SGPT 13 U/L (14-59); AST/SGOT 17 U/L (15-37); BILIRUBIN TOTAL 0.21 mg/dL (0.20-1.00)
[2018-04-22 09:17] LABS: ALBUMIN 2.5 g/dL (3.4-5.0); TOTAL PROTEIN, SERUM 5.5 g/dL (6.4-8.2)
[2018-04-22 09:46] LABS: rbc morphology (normal/abnorm) ABNORMAL (NORMAL)
[2018-04-22 10:11] LABS: T3 TOTAL 0.97 ng/mL
[2018-04-22 10:47] LABS: MAGNESIUM 1.8 mg/dL (1.8-2.4); PHOSPHOROUS 1.1 mg/dL (2.5-4.9)
[2018-04-22 11:00] LABS: FREE T4 1.16 ng/dL (0.76-1.46); FREE THYROXINE INDEX 3.1 ug/dL (1.4-4.5); T4(THYROXINE) 9.4 ug/dL (4.7-13.3)
[2018-04-22 13:01] VITALS: BP 119/72
[2018-04-22 14:08] VITALS: BP 139/70
[2018-04-22 16:32] VITALS: BP 118/78
[2018-04-22 21:44] VITALS: BP 132/57
[2018-04-23 04:55] VITALS: BP 132/66
[2018-04-23 09:53] VITALS: BP 131/61
[2018-04-23 12:49] VITALS: BP 105/54
[2018-04-23 16:29] VITALS: BP 108/47
[2018-04-23 19:09] LABS: CALCIUM 8.6 mg/dL (8.5-10.1); CARBON DIOXIDE 20.4 mmol/L (21-32); CHLORIDE SERUM 114 mmol/L (98-107); CREATININE SERUM 0.8 mg/dL (0.6-1.0); GLUCOSE SERUM 112 mg/dL (74-106); PLATELET COUNT 310 x10^3mcL (130-400)
[2018-04-23 19:10] LABS: RED CELL DISTRIBUTION WIDTH 15.1 % (11.5-14.5)
[2018-04-23 19:19] LABS: SODIUM SERUM 145 mmol/L (136-145)
[2018-04-23 19:22] LABS: POTASSIUM SERUM 2.9 mmol/L (3.5-5.1)
[2018-04-23 21:07] VITALS: BP 113/56
[2018-04-24 06:00] VITALS: BP 139/60
[2018-04-24 06:50] LABS: CALCIUM 9.2 mg/dL (8.5-10.1); CARBON DIOXIDE 18.1 mmol/L (21-32); CHLORIDE SERUM 116 mmol/L (98-107); CREATININE SERUM 0.8 mg/dL (0.6-1.0); GLUCOSE SERUM 107 mg/dL (74-106); POTASSIUM SERUM 4.2 mmol/L (3.5-5.1); SODIUM SERUM 147 mmol/L (136-145)
[2018-04-24 08:06] LABS: BASOPHIL % 1.2 % (0-2); PLATELET COUNT 310 x10^3mcL (130-400)
[2018-04-24 08:22] LABS: RED CELL DISTRIBUTION WIDTH 15.4 % (11.5-14.5)
[2018-04-24 10:06] VITALS: BP 131/90
[2018-04-24 12:03] VITALS: BP 110/54
[2018-04-24] MEDS ORDERED: LIPI20 PO (12:46)
[2018-04-24] MEDS ORDERED: PROTONIX40 MG PO (12:46)
[2018-04-24 13:30] VITALS: BP 110/54
== END 2018-04-24 14:17 | disposition home or self-care (01) | DRG 469 ==
LOC: ED 07:10 → DU 09:18
PROVIDERS: Emergency Medicine; Internal Medicine
PROC: 30233N1 Transfusion of Nonautologous Red Blood Cells into Peripheral Vein, Percutaneous Approach (ICD-10-PCS; principal; 2018-04-22)
PROC: 0DB68ZX Excision of Stomach, Via Natural or Artificial Opening Endoscopic, Diagnostic (ICD-10-PCS; 2018-04-23 07:30)
PROC: 0D778ZZ Dilation of Stomach, Pylorus, Via Natural or Artificial Opening Endoscopic (ICD-10-PCS; 2018-04-23 07:30)
PROC: 0DJD8ZZ Inspection of Lower Intestinal Tract, Via Natural or Artificial Opening Endoscopic (ICD-10-PCS; 2018-04-24)
DX: N17.0 Acute kidney failure with tubular necrosis (principal); E43 Unspecified severe protein-calorie malnutrition; K31.1 Adult hypertrophic pyloric stenosis; K63.3 Ulcer of intestine; D62 Acute posthemorrhagic anemia; K57.90 Diverticulosis of intestine, part unspecified, without perforation or abscess without bleeding; K21.9 Gastro-esophageal reflux disease without esophagitis; I10 Essential (primary) hypertension; K20.9 Esophagitis, unspecified; Z93.4 Other artificial openings of gastrointestinal tract status; Z87.11 Personal history of peptic ulcer disease
CPT/HCPCS: 43220; 43235; 45378; 84439; C1726; C9113; J1200; J1610; J2250; J2310; J3010; J3480; J3490; J7030; J7050; P9016; Q0092; Q0162